=== PATIENT | male | born 1985 | race Caucasian/White ===

== ENCOUNTER 2022-09-17 15:07 | Emergency (ER) | payer OTHER ==
--- NOTE | 2022-09-17 15:14 | ED ---
Nausea/Vomiting/Diarrhea HPI <Bonnie Esteban - Last Filed: 09/17/22 15:16> - General Source: patient, RN notes reviewed Mode of arrival: EMS Limitations: no limitations - History of Present Illness MD complaint: nausea, vomiting, abdominal pain <Karla Cowan - Last Filed: 09/18/22 04:51> - General Chief complaint: Abdominal Pain Stated complaint: NVD,Abd pain Time Seen by Provider: 09/17/22 20:35 - History of Present Illness Initial comments: Patient is a 37-year-old male presenting to the emergency room from [facility] [place] for evaluation with complaints of severe abdominal pain that is diffuse describing as his "insides being on fire" with nausea, vomiting, and diarrhea ongoing for approximately 4 days. Staff reports tremors and diaphoresis. He states that he took COVID test which was negative. He has not been tested for influenza. He denies any chest pain, shortness of breath, fevers or chills. He is currently at [facility] for rehabilitation forearm drug abuse his most recent drug of choice was fentanyl. (Bonnie Esteban) When the patient was brought back in the emergency department and I went to evaluate him, his statements were consistent with those acquired earlier in the day as listed above. He notes chronic abdominal problems since he was younger. (Karla Cowan) - Related Data Previous Rx's Medication Instructions Recorded Metoclopramide [Reglan] 10 mg PO Q6H PRN #20 tab 09/17/22 Ondansetron Odt [Zofran Odt] 4 mg PO Q8HR PRN #20 tab 09/17/22 Pantoprazole Sodium [Protonix] 40 mg PO DAILY #10 tab 09/17/22 Allergies Allergy/AdvReac Type Severity Reaction Status Date / Time prochlorperazine Allergy Anaphylaxis Verified 09/17/22 15:25 [From Compazine] Review of Systems ROS Other: All systems not noted in ROS Statement are negative. <Bonnie Esteban - Last Filed: 09/17/22 15:16> ROS Other: All systems not noted in ROS Statement are negative. <Karla Cowan - Last Filed: 09/18/22 04:51> ROS Statement: Those systems with pertinent positive or pertinent negative responses have been documented in the HPI. General Exam General appearance: alert, in distress Head exam: Present: atraumatic, normocephalic, normal inspection Respiratory exam: Present: normal lung sounds bilaterally. Absent: respiratory distress, wheezes, rales, rhonchi, stridor Cardiovascular Exam: Present: regular rate, normal rhythm, normal heart sounds. Absent: systolic murmur, diastolic murmur, rubs, gallop, clicks GI/Abdominal exam: Present: soft, tenderness (Diffuse and nonlocalized), normal bowel sounds. Absent: distended Neurological exam: Present: alert, oriented X3, CN II-XII intact Psychiatric exam: Present: anxious Skin exam: Present: warm, dry, intact, normal color. Absent: rash <Karla Cowan - Last Filed: 09/18/22 04:51> Course Vital Signs 09/17/22 09/17/22 09/18/22 15:22 21:05 03:50 Temperature 97.7 F 99.5 F 98.9 F Pulse Rate 66 70 71 Respiratory 18 18 18 Rate Blood Pressure 170/103 156/99 142/90 O2 Sat by Pulse 98 100 100 Oximetry Medical Decision Making - Lab Data Result diagrams: 09/17/22 15:29 09/17/22 15:29 - Radiology Data Radiology results: report reviewed, image reviewed <Karla Cowan - Last Filed: 09/18/22 04:51> - Medical Decision Making This is a 37-year-old male who presents to emergency department for abdominal pain. Was pt. sent in by a medical professional or institution? @ -[facility] Did you speak to anyone other than the patient for history? @ -No Did you review nursing and triage notes? @ -Agree, accurate with regards to the patient's symptoms. Were old charts reviewed? @ -No Differential Diagnosis? @ -Differential Abdominal Pain Men: Appendicitis, cholecystitis, diverticulosis, ischemic bowel, pancreatitis, hepatitis, UTI, gastroenteritis, AAA, incarcerated hernia, bowel obstruction, constipation, inflammatory bowel, hepatitis, peptic ulcer disease, splenic infarction, perforated viscus, testicular torsion, this is not meant to be an all-inclusive list X-rays interpreted by me (1pt min.)? @ -My interpretation of the KUB x-ray identifies no free air or distended bowel loops. CT interpreted by me (1pt min.)? @ -My interpretation of the computed tomography scan of the abdomen and pelvis identifies no evidence of free air or bowel wall thickening. What testing was considered but not performed? (CT, X-rays, U/S, labs)? Why? @ -None What meds were considered but not given? Why? @ -None Did you discuss the management of the patient with other professionals? @ -No Did you reconcile home meds? @ -No Was smoking cessation discussed for >3mins.? @ -No Was critical care preformed (if so, how long)? @ -No Were there social determinants of health that impacted care today? How? (Homelessness, low income, unemployed, alcoholism, drug addiction, transportation, low edu. Level, literacy, decrease access to med. care, [facility], rehab)? @ -Drug addiction, [place] resident Was there de-escalation of care discussed even if they declined? (Discuss DNR or withdrawal of care, Hospice)? @ -No What co-morbidities impacted this encounter? (DM, HTN, Smoking, COPD, CAD, Cancer, CVA, Hep., AIDS, mental health diagnosis, sleep apnea, morbid obesity)? @ -Polysubstance abuse Was patient admitted / discharged? @ -Discharged. Lab work obtained and found to be nonactionable. KUB was initially ordered my interpretation is listed above. Symptoms became very difficult to control and he required multiple nausea medications including Zofran, Reglan, and Haldol. Toradol, Ofirmev, Protonix, and a GI cocktail were administered as well. Due to the difficulty in controlling his symptoms, a c omputed tomography scan of the abdomen and pelvis was obtained. My interpretation of this is listed above as well. There were no specific findings obtained in his workup to account for his symptoms. He may still be experiencing withdrawals or having another nonspecific GI problem. Prescription for Zofran, Reglan, and pantoprazole provided with dosing instructions reviewed. Patient discharged back to [facility] [place]. Drug Therapy requiring intensive monitoring for toxicity (Heparin, Nitro, Insulin, Cardizem)? @ -None Were any procedures done? @ -None Diagnosis/symptom? @ -Abdominal pain Acute, or Chronic, or Acute on Chronic? @ -Acute Uncomplicated (without systemic symptoms) or Complicated (systemic symptoms)? @ -Complicated with associated nausea and vomiting. Side effects of treatment? @ -None Exacerbation, Progression, or Severe Exacerbation] @ -Not applicable Poses a threat to life or bodily function? @ -Will impact bodily function if symptoms continue to be severe. Return precautions reviewed in depth, the patient is instructed to return to the emergency department with any new, worsening, or concerning symptoms. Patient verbalized understanding. This case was discussed in detail with the attending ED physician. Presentation, findings, and treatment plan discussed in detail as well. (Karla Cowan) - Lab Data Lab Results 09/17/22 09/17/22 09/17/22 Range/Units 15:29 15:29 15:29 WBC 7.4 (3.8-10.6) k/uL RBC 4.56 (4.30-5.90) m/uL Hgb 14.1 (13.0-17.5) gm/dL Hct 39.2 (39.0-53.0) % MCV 85.9 (80.0-100.0) fL MCH 30.9 (25.0-35.0) pg MCHC 36.0 (31.0-37.0) g/dL RDW 13.3 (11.5-15.5) % Plt Count 254 (150-450) k/uL MPV 7.7 Neutrophils % 67 % Lymphocytes % 24 % Monocytes % 6 % Eosinophils % 1 % Basophils % 1 % Neutrophils # 4.9 (1.3-7.7) k/uL Lymphocytes # 1.8 (1.0-4.8) k/uL Monocytes # 0.5 (0-1.0) k/uL Eosinophils # 0.1 (0-0.7) k/uL Basophils # 0.0 (0-0.2) k/uL Sodium 144 (137-145) mmol/L Potassium 4.0 (3.5-5.1) mmol/L Chloride 106 (98-107) mmol/L Carbon Dioxide 28 (22-30) mmol/L Anion Gap 10 mmol/L BUN 15 (9-20) mg/dL Creatinine 1.01 (0.66-1.25) mg/dL Est GFR (CKD-EPI)AfAm >90 (>60 ml/min/1.73 sqM) Est GFR (CKD-EPI)NonAf >90 (>60 ml/min/1.73 sqM) Glucose 111 H (74-99) mg/dL Calcium 9.4 (8.4-10.2) mg/dL Magnesium 2.7 H (1.6-2.3) mg/dL Total Bilirubin 0.6 (0.2-1.3) mg/dL AST 34 (17-59) U/L ALT 48 (4-49) U/L Alkaline Phosphatase 89 (38-126) U/L Total Protein 8.1 (6.3-8.2) g/dL Albumin 5.0 (3.5-5.0) g/dL Amylase (30-110) U/L Lipase (23-300) U/L Urine Opiates Screen Not Detected (NotDetected) Ur Oxycodone Screen Not Detected (NotDetected) Urine Methadone Screen Not Detected (NotDetected) Ur Propoxyphene Screen Not Detected (NotDetected) Ur Barbiturates Screen Not Detected (NotDetected) U Tricyclic Antidepress Detected H (NotDetected) Ur Phencyclidine Scrn Not Detected (NotDetected) Ur Amphetamines Screen Not Detected (NotDetected) U Methamphetamines Scrn Not Detected (NotDetected) U Benzodiazepines Scrn Not Detected (NotDetected) Urine Cocaine Screen Not Detected (NotDetected) U Marijuana (THC) Screen Not Detected (NotDetected) Influenza Type A (PCR) (Not Detectd) Influenza Type B (PCR) (Not Detectd) RSV (PCR) (Not Detectd) SARS-CoV-2 (PCR) (Not Detectd) 09/17/22 09/17/22 Range/Units 15:29 21:02 WBC (3.8-10.6) k/uL RBC (4.30-5.90) m/uL Hgb (13.0-17.5) gm/dL Hct (39.0-53.0) % MCV (80.0-100.0) fL MCH (25.0-35.0) pg MCHC (31.0-37.0) g/dL RDW (11.5-15.5) % Plt Count (150-450) k/uL MPV Neutrophils % % Lymphocytes % % Monocytes % % Eosinophils % % Basophils % % Neutrophils # (1.3-7.7) k/uL Lymphocytes # (1.0-4.8) k/uL Monocytes # (0-1.0) k/uL Eosinophils # (0-0.7) k/uL Basophils # (0-0.2) k/uL Sodium (137-145) mmol/L Potassium (3.5-5.1) mmol/L Chloride (98-107) mmol/L Carbon Dioxide (22-30) mmol/L Anion Gap mmol/L BUN (9-20) mg/dL Creatinine (0.66-1.25) mg/dL Est GFR (CKD-EPI)AfAm (>60 ml/min/1.73 sqM) Est GFR (CKD-EPI)NonAf (>60 ml/min/1.73 sqM) Glucose (74-99) mg/dL Calcium (8.4-10.2) mg/dL Magnesium (1.6-2.3) mg/dL Total Bilirubin (0.2-1.3) mg/dL AST (17-59) U/L ALT (4-49) U/L Alkaline Phosphatase (38-126) U/L Total Protein (6.3-8.2) g/dL Albumin (3.5-5.0) g/dL Amylase 58 (30-110) U/L Lipase 72 (23-300) U/L Urine Opiates Screen (NotDetected) Ur Oxycodone Screen (NotDetected) Urine Methadone Screen (NotDetected) Ur Propoxyphene Screen (NotDetected) Ur Barbiturates Screen (NotDetected) U Tricyclic Antidepress (NotDetected) Ur Phencyclidine Scrn (NotDetected) Ur Amphetamines Screen (NotDetected) U Methamphetamines Scrn (NotDetected) U Benzodiazepines Scrn (NotDetected) Urine Cocaine Screen (NotDetected) U Marijuana (THC) Screen (NotDetected) Influenza Type A (PCR) Not Detected (Not Detectd) Influenza Type B (PCR) Not Detected (Not Detectd) RSV (PCR) Not Detected (Not Detectd) SARS-CoV-2 (PCR) Not Detected (Not Detectd) Disposition <Bonnie Esteban - Last Filed: 09/17/22 15:16> Is patient prescribed a controlled substance at d/c from ED?: No <VinceDawood jungKarla - Last Filed: 09/18/22 04:51> Clinical Impression: Abdominal pain Disposition: HOME SELF-CARE Instructions (If sedation given, give patient instructions): Abdominal Pain (ED) Additional Instructions: Return to the emergency department with any new, worsening, or concerning symptoms. You can take the Zofran up to every 8 hours as needed for nausea and vomiting. If the Zofran is not effective on its own, you can alternate taking this with the Reglan. The pantoprazole will be taken once daily 30-60 minutes before eating or taking other medication. Follow up with your primary care provider in 1-2 days. Prescriptions: Pantoprazole Sodium [Protonix] 40 mg PO DAILY #10 tab Metoclopramide [Reglan] 10 mg PO Q6H PRN #20 tab PRN Reason: Nausea And Vomiting Ondansetron Odt [Zofran Odt] 4 mg PO Q8HR PRN #20 tab PRN Reason: Nausea And Vomiting Referrals: None,Stated [Primary Care Provider] - 1-2 days
[2022-09-17 15:25] VITALS: RESP 18
[2022-09-17 15:58] LABS: Amphetamine Screen,Urine Not Detected (NotDetected); Barbiturate Screen,Urine Not Detected (NotDetected); Benzodiazepines Screen,Urine Not Detected (NotDetected); Cocaine Screen,Urine Not Detected (NotDetected); Methadone Screen, Urine Not Detected (NotDetected); Opiate Screen,Urine Not Detected (NotDetected); Oxycodone Screen, Urine Not Detected (NotDetected); Phencyclidine Screen,Urine Not Detected (NotDetected); Tricyclic Antidepressant,Urine Detected (NotDetected); Urn Cannabinoid Scrn Not Detected (NotDetected)
[2022-09-17 16:29] LABS: Basophils % (A) 1 %; Eosinophils # (A) 0.1 k/uL (0-0.7); Eosinophils % (A) 1 %; HCT 39.2 % (39.0-53.0); HGB 14.1 gm/dL (13.0-17.5); Lymphocytes # (A) 1.8 k/uL (1.0-4.8); Lymphocytes % (A) 24 %; MCH 30.9 pg (25.0-35.0); MCV 85.9 fL (80.0-100.0); Mean Platelet Volume 7.7; Monocytes # (A) 0.5 k/uL (0-1.0); Monocytes % (A) 6 %; Neutrophils # (A) 4.9 k/uL (1.3-7.7); Neutrophils % (A) 67 %; Platelet Count 254 k/uL (150-450); RBC 4.56 m/uL (4.30-5.90); RDW 13.3 % (11.5-15.5); WBC 7.4 k/uL (3.8-10.6)
[2022-09-17 17:17] LABS: ALT 48 U/L (4-49); AST 34 U/L (17-59); African American GFR (CKD) >90 (>60 ml/min/1.73 sqM); Alkaline Phosphatase 89 U/L (38-126); Anion Gap 10 mmol/L; Blood Urea Nitrogen 15 mg/dL (9-20); Calcium 9.4 mg/dL (8.4-10.2); Carbon Dioxide 28 mmol/L (22-30); Chloride 106 mmol/L (98-107); Glucose 111 mg/dL (74-99); Magnesium 2.7 mg/dL (1.6-2.3); Non-African American GFR(CKD) >90 (>60 ml/min/1.73 sqM); Sodium 144 mmol/L (137-145); Total Bilirubin 0.6 mg/dL (0.2-1.3); Total Protein 8.1 g/dL (6.3-8.2)
[2022-09-17] MEDS ORDERED: KETOROLAC 15 MG/ML 1 ML VIAL IVP STA (20:36)
[2022-09-17] MEDS ORDERED: diphenhydrAMINE 50 MG/ML 1 ML VIAL IVP STA (20:36)
[2022-09-17] MEDS ORDERED: ONDANSETRON 4 MG/2 ML VIAL IVP STA (20:36)
[2022-09-17] MEDS ORDERED: SODIUM CHLORIDE 0.9% 1,000 ML IV STA (20:36)
[2022-09-17] MEDS ORDERED: PANTOPRAZOLE 40 MG/10 ML VIAL IVP STA (20:36)
[2022-09-17 21:18] LABS: Amylase 58 U/L (30-110); Lipase 72 U/L (23-300)
--- NOTE | 2022-09-17 21:40 | XR ---
EXAMINATION TYPE: XR KUB DATE OF EXAM: 09/17/2022 9:16 PM CLINICAL HISTORY: Nausea vomiting diarrhea TECHNIQUE: 2 upright views COMPARISON: None. FINDINGS: Scattered gas is seen in non-distended small bowel loops. Gas and fecal material is seen in non-distended colon. Colonic stool volume is normal. There is no visceromegaly, pneumoperitoneum, or abnormal calcification appreciated. The lung bases are clear and the osseous structures are intact. IMPRESSION: No acute radiographic process.
[2022-09-17] MEDS ORDERED: METOCLOPRAMIDE 5 MG/ML 2 ML VIAL IVP STA (21:45)
[2022-09-17] MEDS ORDERED: MAG HYDROX/AL HYDROX/SIMETH 30 ML, HYOSCYAMINE ELIXIR 10 ML PO STA ×2 (21:46)
[2022-09-17] MEDS ORDERED: ACETAMINOPHEN IV (For NPO) 1,000 MG in EMPTY BAG 1 BAG IVPB ONE (22:00)
[2022-09-17] MEDS ORDERED: ONDANSETRON 4 MG ODT STARTER PACK 2 TAB BTL PO STA (22:58)
[2022-09-17] MEDS ORDERED: HALOPERIDOL LACTATE 5 MG/ML 1 ML VIAL IVP ONE (23:06)
--- NOTE | 2022-09-18 01:18 | CT ---
EXAMINATION TYPE: CT abdomen pelvis w con DATE OF EXAM: 09/18/2022 COMPARISON: None HISTORY: sent by [employer] for n/v/d. etoh abuse, last drink 09/08/22. CT DLP: 1364.3 mGycm Automated exposure control for dose reduction was used. CONTRAST: Performed with IV Contrast, patient injected with 100 mL of Isovue 300. Images obtained from the diaphragm to the floor the pelvis with the IV contrast. The lung bases are clear. No pleural effusion. Heart size is normal. No pericardial effusion. There a re clips from cholecystectomy. Liver spleen stomach pancreas appear intact. The bile ducts are not di lated. There is no adrenal mass. Kidneys show satisfactory contrast opacification. No hydronephrosis. Ureter s are not dilated. The bladder distends smoothly. No inguinal hernia. No free fluid in the pelvis. No pelvic mass. There is no mesenteric edema. No ascites or free air. No sign of a bowel obstruction. Delayed images show normal renal excretion. Terminal ileum appears normal. Appendix not clearly seen. No sign of thi ckened appendix. The lumbar vertebra have normal spacing and alignment. Posterior elements are intact. No compression fracture. The bony pelvis is intact. The hip joints are intact. Sacroiliac joints are intact. IMPRESSION: Negative CT scan abdomen and pelvis. Appendix not seen.
[2022-09-18 03:52] VITALS: BP 142/90; PULSE 71; TEMP 98.9
== END 2022-09-18 04:31 | disposition home or self-care (01) ==
LOC: EC 15:07
DX: R10.9 Unspecified abdominal pain (principal); Z20.822 Contact with and (suspected) exposure to COVID-19
CPT/HCPCS: 36415; 80053; 82150; 83690; 83735; 85025; 80306; 87636; 74018; 74177; 99284; 96374; 96375 ×4; 96361; J1200; J1630; J2765; J2405; J0131; J1885; S0119; C9113; Q9967